=== PATIENT | male | born 1955 | race Caucasian/White ===

== ENCOUNTER → 2017-02-10 | Outpatient (CLI) | payer OTHER ==
[~2017-02-10] MED LIST: ALPRAZOLAM PO; LORTAB 7.5-5001 TAB PO; NO MEDICATIONS
--- NOTE | ~2017-02-10 | US6 ---
[facility] A Service of [facility] RADIOLOGY TEXT RESULTS PATIENT: MARIXA MCCRARY LOCATION: [facility] : 55 UNIT #: [id number] AGE: [address]: Trip Mortensen MD SEX: M ORDER DR: [id number] [facility] [address] [place], [place] [address] [id number] O MR#: [id number] Acc #: [id number] NAME: MARIXA MCCRARY : 1955 SEX: M STUDY DATE/TIME: 02/10/2017 10:12 UNIT: [facility] ROOM: STUDY DESCRIPTION: US Abdominal Limited Attending Physician: Trip Mortensen M.D. Referring Physician: Trip Mortensen M.D. Ordering Physician: Trip Mortensen M.D. Primary Care Physician: Trip Mortensen M.D. MEDICAL IMAGING REPORT This report is preliminary unless electronic signature is present EXAM Right upper quadrant ultrasound, 02/10/2017 HISTORY Abnormally elevated liver enzymes, 01/27/2017 FINDINGS The liver is homogeneous in echotexture and demonstrates no cystic or solid mass lesions. The intra and extrahepatic bile ducts are not dilated. The gallbladder is normal with no evidence of cholelithiasis, wall thickening or pericholecystic fluid. The common duct measured 2.0 mm. The pancreas is poorly visualized due to overlying bowel gas. The right kidney is normal. IMPRESSION Poor visualization of the pancreas due to overlying bowel gas. Otherwise negative right upper quadrant ultrasound. Dictated by... Octaviano Dupree M.D. THIS IS AN ELECTRONICALLY VERIFIED REPORT Octaviano Dupree M.D. at 02/10/2017 5:06 PM DEAN/manisha TD: 02/10/2017 13:03 JOB #: [id number] MEDICAL IMAGING REPORT Page 1 of 1 COPY
== END | disposition home or self-care (01) ==
LOC: CGUS 02-09 10:30
DX: R79.89 Other specified abnormal findings of blood chemistry (principal)
CPT/HCPCS: 76705